=== PATIENT | female | born 1965 | race Caucasian/White ===

== ENCOUNTER 2016-11-22 13:18 | Emergency (ER) | payer BC, OTHER ==
--- NOTE | 2016-11-22 14:38 | ED ---
General Adult HPI - General Chief complaint: Chest Pain Stated complaint: Chest Pain Time Seen by Provider: 11/22/16 14:20 Source: patient, RN notes reviewed Mode of arrival: ambulatory Limitations: no limitations - History of Present Illness Initial comments: Chief complaint and history of present illness is a 51-year-old female who is here visiting her father is in the hospital. While there she developed chest pain. As retrosternal high epigastric region. Mildly nauseated mildly sweaty. The pain did not radiate anywhere. Approximately one hour for to subside. Patient denies ever having had any chest pain before - Related Data Home Medications Medication Instructions Recorded Confirmed Loratadine [Claritin] 10 mg PO DAILY 11/22/16 11/22/16 Omeprazole [PriLOSEC] 20 mg PO DAILY 11/22/16 11/22/16 Allergies Allergy/AdvReac Type Severity Reaction Status Date / Time No Known Allergies Allergy Verified 11/22/16 14:46 Review of Systems ROS Statement: Those systems with pertinent positive or pertinent negative responses have been documented in the HPI. Review of systems this time 1 mild discomfort to the retrosternal area high epigastric region. Not pain better or worse by twisting turning deep breathing or coughing. Palpating the area does not cause discomfort. Patient denying any visual acuity changes no headache no shortness of breath mild nausea earlier subsided no diarrhea today. No back pain. Pain. No extremity pain and no evidence or complaints of any neuro deficits. All systems were reviewed Past medical problems significant for GERD and seasonal ALLERGIES. Surgeries include and bunionectomy. Family history no cancer. Father does have heart disease. The patient's denying any ALLERGIES other than seasonal. The patient is reporting that she quit smoking 25 years ago. She drinks 3 or 4 glasses of wine nightly. ROS Other: All systems not noted in ROS Statement are negative. Past Medical History Past Medical History: GERD/Reflux Additional Past Medical History / Comment(s): allergies History of Any Multi-Drug Resistant Organisms: None Reported Past Surgical History: Section Additional Past Surgical History / Comment(s): bunionectomy Past Psychological History: No Psychological Hx Reported Smoking Status: Never smoker Past Alcohol Use History: Daily Past Drug Use History: None Reported General Exam - General Exam Comments Initial Comments: General: The patient is awake and alert, mild distress because of epigastric retrosternal discomfort last approximately half hour and subsiding. No radiation mild nausea this time mild sweats. Vital signs show temperature 98.5 pulse 64 story rate 20 pulse ox 98% room air blood pressure 147/76 mildly elevated systolic noted the patient is distressed. Eye: Pupils are equal, round and reactive to light, extra-ocular movements are intact ; there is normal conjunctiva bilaterally. No signs of icterus. Ears, nose, mouth and throat: There are moist mucous membranes and no oral lesions. Neck: The neck is supple, there is no tenderness , no anterior cervical lymphadenopathy, thyroid not enlarged. Cardiovascular: There is a regular rate and rhythm. No murmur, rub or gallop is appreciated. Respiratory: Lungs are clear to auscultation, respirations are non-labored, breath sounds are equal. No wheezes, stridor, rales, or rhonchi. Gastrointestinal: Soft, non-distended, no organomegaly, mild to minimal discomfort deep palpation of the epigastric region. There is no rebound or guarding present. Back: There is no tenderness to palpation in the midline. There is no obvious deformity. Musculoskeletal: Normal ROM, no tenderness, There is no pedal edema. There is no calf tenderness or swelling. Sensation intact. Pulses equal bilaterally 2+. Neurological: No complaint of dizziness, no neuro deficits complained of. No deficits noted. Skin: Patient denies rashes Limitations: no limitations Course Vital Signs 11/22/16 13:57 Temperature 98.5 F Pulse Rate 64 Respiratory 20 Rate Blood Pressure 147/76 O2 Sat by Pulse 98 Oximetry EKG Findings - EKG Comments: EKG Findings:: EKG was done and reviewed at 1333 showing normal sinus rhythm no acute ST elevation no ectopy no ischemic changes. Rate 62. Was 1:30 QRS [address] Suarez. No old EKGs available to compare to Medical Decision Making - Medical Decision Making Medical decision making the patient's white count 7.8 hemoglobin 13 hematocrit of 39 with an INR 1.1. Potassium is 4.2 with a BUN 11 creatinine 0.7 with a GFR greater than 60. Glucose 94. Amylase lipase normal limits. Chest x-ray was done and reviewed by radiologist and his impression is the heart size is normal. The pulmonary vasculature is normal. The lungs are clear. Impression no acute pulmonary process. As read by Dr. Sjgren At this time the patient is signing out AGAINST MEDICAL ADVICE nor to get back to her ailing father. I did discuss the risks of chest pain for her to come back to the emergency room immediately if she has any changes. She states she is currently pain free. Labs were returned are within normal limits. Troponin still pending. The patient was in emergency room within 40 minutes of the beginning of her chest discomfort troponin may not be elevated. She was going to be advised admitted for observation for the day because of the symptoms. With evaluation by cardiology and repeat cardiac enzymes. Patient states she understands risks and is signing out AGAINST MEDICAL ADVICE. - Lab Data Result diagrams: 11/22/16 14:38 11/22/16 14:38 Lab Results 11/22/16 11/22/16 11/22/16 Range/Units 14:38 14:38 14:38 WBC 7.8 (3.8-10.6) k/uL RBC 4.56 (3.80-5.40) m/uL Hgb 13.1 (11.4-16.0) gm/dL Hct 39.3 (34.0-46.0) % MCV 86.1 (80.0-100.0) fL MCH 28.7 (25.0-35.0) pg MCHC 33.4 (31.0-37.0) g/dL RDW 12.6 (11.5-15.5) % Plt Count 236 (150-450) k/uL Neutrophils % 74 % Lymphocytes % 18 % Monocytes % 5 % Eosinophils % 1 % Basophils % 0 % Neutrophils # 5.7 (1.3-7.7) k/uL Lymphocytes # 1.4 (1.0-4.8) k/uL Monocytes # 0.4 (0-1.0) k/uL Eosinophils # 0.1 (0-0.7) k/uL Basophils # 0.0 (0-0.2) k/uL PT 10.7 (9.0-12.0) sec INR 1.1 (<1.1) APTT 23.5 (22.0-30.0) sec Sodium 140 (137-145) mmol/L Potassium 4.2 (3.5-5.1) mmol/L Chloride 105 (98-107) mmol/L Carbon Dioxide 25 (22-30) mmol/L Anion Gap 10 mmol/L BUN 11 (7-17) mg/dL Creatinine 0.70 (0.52-1.04) mg/dL Est GFR (MDRD) Af Amer >60 (>60 ml/min/1.73 sqM) Est GFR (MDRD) Non-Af >60 (>60 ml/min/1.73 sqM) Glucose 94 (74-99) mg/dL Calcium 9.5 (8.4-10.2) mg/dL Magnesium 1.8 (1.6-2.3) mg/dL Total Bilirubin 0.8 (0.2-1.3) mg/dL AST 25 (14-36) U/L ALT 33 (9-52) U/L Alkaline Phosphatase 91 (38-126) U/L Total Protein 7.4 (6.3-8.2) g/dL Albumin 4.4 (3.5-5.0) g/dL Amylase 60 (30-110) U/L Lipase 90 (23-300) U/L Disposition Clinical Impression: Chest pain Disposition: Left Against Medical Advice Condition: Undetermined Instructions: Chest Pain (ED) Additional Instructions: Return to this emergency room or any emergency room for evaluation of your chest pain. If the pain returns immediately return to the ER, any ER. Follow- up family physician, tomorrow. Time of Disposition: 15:24
[2016-11-22 14:54] LABS: Basophils % (A) 0 %; CH 28.5; CHCM 33.2; Eosinophils # (A) 0.1 k/uL (0-0.7); Eosinophils % (A) 1 %; HCT 39.3 % (34.0-46.0); HDW 2.29; HGB 13.1 gm/dL (11.4-16.0); Luc # (Auto) 0.13; Luc % (Auto) 2; Lymphocytes # (A) 1.4 k/uL (1.0-4.8); Lymphocytes % (A) 18 %; MCH 28.7 pg (25.0-35.0); MCHC 33.4 g/dL (31.0-37.0); MCV 86.1 fL (80.0-100.0); Mean Platelet Volume 7.1; Monocytes # (A) 0.4 k/uL (0-1.0); Monocytes % (A) 5 %; Neutrophils # (A) 5.7 k/uL (1.3-7.7); Neutrophils % (A) 74 %; RBC 4.56 m/uL (3.80-5.40); RDW 12.6 % (11.5-15.5); WBC 7.8 k/uL (3.8-10.6); WBC (Perox) 7.91
[2016-11-22 14:57] LABS: INR 1.1 (<1.1); Prothrombin Time 10.7 sec (9.0-12.0)
[2016-11-22 14:58] LABS: Partial Thromboplastin Time 23.5 sec (22.0-30.0)
--- NOTE | 2016-11-22 15:03 | XR ---
EXAMINATION TYPE: XR chest 2V DATE OF EXAM: 11/22/2016 2:52 PM COMPARISON: NONE INDICATION: Chest pain TECHNIQUE: Single frontal view of the chest is obtained. FINDINGS: The heart size is normal. The pulmonary vasculature is normal. The lungs are clear. IMPRESSION: 1. No acute pulmonary process.
[2016-11-22 15:04] LABS: ALT 33 U/L (9-52); AST 25 U/L (14-36); Alkaline Phosphatase 91 U/L (38-126); Amylase 60 U/L (30-110); Anion Gap 10 mmol/L; Blood Urea Nitrogen 11 mg/dL (7-17); Calcium 9.5 mg/dL (8.4-10.2); Carbon Dioxide 25 mmol/L (22-30); Chloride 105 mmol/L (98-107); Glucose 94 mg/dL (74-99); Magnesium 1.8 mg/dL (1.6-2.3); Non-African American GFR(MDRD) >60 (>60 ml/min/1.73 sqM); Potassium 4.2 mmol/L (3.5-5.1); Sodium 140 mmol/L (137-145); Total Bilirubin 0.8 mg/dL (0.2-1.3); Total Protein 7.4 g/dL (6.3-8.2)
[2016-11-22 15:19] LABS: Creatine Kinase 109 U/L (30-135)
[2016-11-22 15:25] VITALS: BP 162/77; PULSE 70; RESP 18; TEMP 98.8
[2016-11-22 15:32] LABS: Creatine Kinase MB 1.2 ng/mL (0.0-2.4); Troponin I <0.012 ng/mL (0.000-0.034)
== END 2016-11-22 15:25 | disposition left against medical advice (07) ==
LOC: EC 13:18
DX: R07.9 Chest pain, unspecified (principal); K21.9 Gastro-esophageal reflux disease without esophagitis; Z53.21 Procedure and treatment not carried out due to patient leaving prior to being seen by health care provider; Z79.899 Other long term (current) drug therapy
CPT/HCPCS: 36415; 71020; 80053; 82150; 82550; 82553; 83690; 83735; 84484; 85025; 85610; 85730; 93005; 99285

== ENCOUNTER → 2019-01-08 | Outpatient (CLI) | payer OTHER ==
--- NOTE | 2019-01-09 13:38 | MM ---
Reason for exam: screening (asymptomatic). Last mammogram was performed 4 years and 4 months ago. History: Patient had first child at age 34. Right Mammotome Panel of the right breast, May 15, 2012. Took hormonal contraceptives for 19 years. Physical Findings: A clinical breast exam by your physician is recommended on an annual basis and results should be correlated with mammographic findings. MG Screening Mammo w CAD Bilateral CC and MLO view(s) were taken. Prior study comparison: September 23, 2014, left breast MG work up mamm w CAD LT. September 09, 2014, bilateral MG screening mammo w CAD. The breast tissue is extremely dense which could obscure a lesion on mammography. No significant changes when compared with prior studies. ASSESSMENT: Benign, BI-RAD 2 RECOMMENDATION: Routine screening mammogram of both breasts in 1 year.
== END | disposition home or self-care (01) ==
LOC: RADMAMWWP 16:53
PROVIDERS: ATTEND Obstetrics & Gynecology
DX: Z12.31 Encounter for screening mammogram for malignant neoplasm of breast (principal)
CPT/HCPCS: 77067

== ENCOUNTER 2021-08-27 19:28 | Emergency (ER) | payer OTHER ==
[2021-08-27 19:39] VITALS: BP 136/74; PULSE 67; RESP 18; TEMP 98.3
[2021-08-27] MEDS ORDERED: KETOROLAC 30 MG/ML 1 ML VIAL IVP STA (20:15)
[2021-08-27] MEDS ORDERED: ASPIRIN 81 MG PO STA (20:15)
--- NOTE | 2021-08-27 20:20 | ED ---
General Adult HPI - General Chief complaint: Chest Pain Stated complaint: palpitations Time Seen by Provider: 08/27/21 19:56 Source: patient, RN notes reviewed, old records reviewed Mode of arrival: ambulatory - History of Present Illness Initial comments: Patient is a 56-year-old female with a past medical history except for GERD presents emergency Department complaining of chest discomfort. She states this has been ongoing for a few months, however today occurred while awake and standing. She states that typically it occurs when she lays on her side and she describes it as a discomfort, sharp pain located substernally. It usually improves when she sits up or changes position. She states today while she was at work she had the pain while sitting up. States it lasted for approximately 3 hours and then resolved. He has any shortness of breath, abdominal pain, jessi sea, vomiting. His no associated symptoms with this pain. His no cardiac history. She presents today after discussing it with her nursing friend for further evaluation. She states she does not have chest pain currently. She has no other acute complaints. She was vaccinated for COVID-19. Denies any infectious symptoms. - Related Data Home Medications Medication Instructions Recorded Confirmed Loratadine [Claritin] 10 mg PO DAILY 11/22/16 08/27/21 Omeprazole Magnesium [PriLOSEC OTC] 20 mg PO DAILY 08/27/21 08/27/21 Allergies Allergy/AdvReac Type Severity Reaction Status Date / Time No Known Allergies Allergy Verified 08/27/21 21:14 Review of Systems ROS Statement: Those systems with pertinent positive or pertinent negative responses have been documented in the HPI. Review of Systems: CONST: Denies fever EYES: Denies blurry vision ENT: Denies nasal congestion C/V: Endorses resolved chest pain RESP: Denies shortness of breath GI: Denies abdominal pain : Denies dysuria SKIN: Denies rash. MSK: Denies joint pain. NEURO: Denies headache ROS Other: All systems not noted in ROS Statement are negative. Past Medical History Past Medical History: GERD/Reflux Additional Past Medical History / Comment(s): allergies History of Any Multi-Drug Resistant Organisms: None Reported Past Surgical History: Section Additional Past Surgical History / Comment(s): bunionectomy Past Psychological History: No Psychological Hx Reported Smoking Status: Never smoker Past Alcohol Use History: Daily Past Drug Use History: None Reported General Exam - General Exam Comments Initial Comments: General: Appears in no acute distress. HEAD: Normal with no signs of head trauma. EYES: PERRLA, EOMI, conjunctiva normal, no discharge. ENT: Hearing grossly intact, normal oropharynx. RESPIRATORY: Clear breath sounds bilaterally. No wheezes, rales, or rhonchi. C/V: Regular rate and rhythm. S1 and S2 auscultated, no edema, peripheral pulses 2+ and intact throughout. Chest pain is not present on palpation. ABD: Abd is soft, nontender, nondistended EXT: Normal range of motion, no obvious deformity SKIN: No rashes or lesions observed on exposed skin. NEURO: Alert and oriented 4. No focal deficits. Course Vital Signs 08/27/21 19:34 Temperature 98.3 F Pulse Rate 67 Respiratory 18 Rate Blood Pressure 136/74 O2 Sat by Pulse 99 Oximetry Medical Decision Making - Medical Decision Making Based on the patient's presentation and physical exam, I do believe she is likely expressing chest wall pain, however cannot rule out cardiac etiology at this time. Chest pain was over 3 hours ago and therefore I believe a single troponin should be sufficient in addition to basic labs, chest x-ray, EKG. She has no pain. Patient will be administered aspirin and IV Toradol. She was in agreement this plan. Patient's EKG showed no signs of acute ischemia.Chest x-ray showed no acute cardiopulmonary process. Laboratory studies are remarkable for a negative troponin. Creatinine is slightly elevated to 1.28. Pending labs are unremarkable. On reevaluation, patient's pain remains gone. Has not recurred while she is here in the department. I discussed the negative cardiac workup with her and I believe it is safe for her to be discharged home with follow-up with her PCP. She'll also receive cardiac referral. She was in agreement this plan. We discussed costochondritis as well as using Motrin at home for pain. Heart score is low at 1 point. I instructed the patient to follow up with their PCP in the next 3 days. I explained that the patient should return to the emergency department if they experience any worsening symptoms. Strict return precautions were discussed with the patient. The patient expressed understanding of these instructions. I answered all questions that the patient had. The patient was discharged home in good condition with their prescriptions and follow up information. - Lab Data Result diagrams: 08/27/21 20:50 08/27/21 20:50 Lab Results 08/27/21 08/27/21 08/27/21 Range/Units 20:50 20:50 20:50 WBC 6.7 (3.8-10.6) k/uL RBC 4.25 (3.80-5.40) m/uL Hgb 12.6 (11.4-16.0) gm/dL Hct 39.8 (34.0-46.0) % MCV 93.7 (80.0-100.0) fL MCH 29.7 (25.0-35.0) pg MCHC 31.7 (31.0-37.0) g/dL RDW 13.3 (11.5-15.5) % Plt Count 291 (150-450) k/uL MPV 7.6 Neutrophils % 40 % Lymphocytes % 49 % Monocytes % 6 % Eosinophils % 1 % Basophils % 1 % Neutrophils # 2.7 (1.3-7.7) k/uL Lymphocytes # 3.3 (1.0-4.8) k/uL Monocytes # 0.4 (0-1.0) k/uL Eosinophils # 0.1 (0-0.7) k/uL Basophils # 0.0 (0-0.2) k/uL Sodium 138 (137-145) mmol/L Potassium 4.5 (3.5-5.1) mmol/L Chloride 104 (98-107) mmol/L Carbon Dioxide 30 (22-30) mmol/L Anion Gap 4 mmol/L BUN 20 H (7-17) mg/dL Creatinine 1.28 H (0.52-1.04) mg/dL Est GFR (CKD-EPI)AfAm 55 (>60 ml/min/1.73 sqM) Est GFR (CKD-EPI)NonAf 48 (>60 ml/min/1.73 sqM) Glucose 94 (74-99) mg/dL Calcium 9.4 (8.4-10.2) mg/dL Magnesium 1.8 (1.6-2.3) mg/dL Total Bilirubin 0.4 (0.2-1.3) mg/dL AST 30 (14-36) U/L ALT 18 (4-34) U/L Alkaline Phosphatase 65 (38-126) U/L Troponin I <0.012 (0.000-0.034) ng/mL Total Protein 7.0 (6.3-8.2) g/dL Albumin 4.3 (3.5-5.0) g/dL - EKG Data -: EKG Interpreted by Me EKG Comments: 12-lead Electrocardiogram Interpretation Note EKG was reviewed and interpreted by myself. 12-lead ECG performed at 1943 is interpreted by me as revealing normal sinus rhythm at a rate of 63 beats per minute. [place] is normal. [place] interval is 132 ms, QRS duration is 82 ms, QTc is 409 ms.. There were no ST or T wave abnormalities to suggest myocardial ischemia or injury. R wave progression across the precordium was satisfactory. By my interpretation this EKG is non-diagnostic for acute ischemia. Disposition Clinical Impression: Chest wall pain, Costochondritis, Chest pain of unknown etiology Disposition: HOME SELF-CARE Condition: Good Instructions (If sedation given, give patient instructions): Chest Pain (ED), Costochondritis (ED) Is patient prescribed a controlled substance at d/c from ED?: No Referrals: Gustabo Sage MD [Primary Care Provider] - 1-2 days Ady Brown MD [STAFF PHYSICIAN] - 1-2 days
--- NOTE | 2021-08-27 20:49 | XR ---
EXAMINATION TYPE: XR chest 2V DATE OF EXAM: 08/27/2021 COMPARISON: 11/22/2016 HISTORY: Chest pain TECHNIQUE: 2 views FINDINGS: Heart and mediastinum are normal. Lungs are clear. Diaphragm is normal. Bony thorax appears normal. IMPRESSION: Normal chest. No change.
[2021-08-27 20:57] LABS: Basophils % (A) 1 %; Eosinophils # (A) 0.1 k/uL (0-0.7); Eosinophils % (A) 1 %; HCT 39.8 % (34.0-46.0); HGB 12.6 gm/dL (11.4-16.0); Lymphocytes # (A) 3.3 k/uL (1.0-4.8); Lymphocytes % (A) 49 %; MCH 29.7 pg (25.0-35.0); MCHC 31.7 g/dL (31.0-37.0); MCV 93.7 fL (80.0-100.0); Mean Platelet Volume 7.6; Monocytes # (A) 0.4 k/uL (0-1.0); Monocytes % (A) 6 %; Neutrophils # (A) 2.7 k/uL (1.3-7.7); Neutrophils % (A) 40 %; Platelet Count 291 k/uL (150-450); RBC 4.25 m/uL (3.80-5.40); RDW 13.3 % (11.5-15.5); WBC 6.7 k/uL (3.8-10.6)
[2021-08-27 21:07] LABS: Albumin 4.3 g/dL (3.5-5.0); Calcium 9.4 mg/dL (8.4-10.2); Magnesium 1.8 mg/dL (1.6-2.3); Potassium 4.5 mmol/L (3.5-5.1); Total Bilirubin 0.4 mg/dL (0.2-1.3)
[2021-08-27 22:00] LABS: Partial Thromboplastin Time 23.7 sec (22.0-30.0); Prothrombin Time 10.4 sec (9.0-12.0)
== END 2021-08-27 21:55 | disposition home or self-care (01) ==
LOC: EC 19:28
DX: M94.0 Chondrocostal junction syndrome [Tietze] (principal); R00.2 Palpitations; K21.9 Gastro-esophageal reflux disease without esophagitis; Z79.899 Other long term (current) drug therapy
CPT/HCPCS: 36415; 93005; 80053; 83735; 84484; 85025; 85610; 85730; 71046; 99285; 96374; J1885

== ENCOUNTER → 2022-06-28 | Outpatient (CLI) | payer OTHER ==
--- NOTE | 2022-06-29 09:09 | MM ---
Reason for Exam: Screening (asymptomatic). Last mammogram was performed 3 year(s) and 6 month(s) ago. Patient History: Menarche at age 19. First Full-Term at age 34. Late child-bearing (after 30). Postmenopausal. Hormonal Contraceptives for 19 years until age 38. 05/15/2012, Core Biopsy on the Right side. Risk Values: Ce 5 year model risk: 1.8%. NCI Lifetime model risk: 12.0%. Prior Study Comparison: 07/07/2013 Bilateral Screening Mammogram, [facility]. 09/09/2014 Bilateral Screening Mammogram, [facility]. 09/23/2014 Left Diagnostic Mammogram, [facility]. 01/08/2019 Bilateral Screening Mammogram, [facility]. Tissue Density: The breast tissue is heterogeneously dense. This may lower the sensitivity of mammography. Findings: Analyzed By CAD. There is no suspicious group of microcalcifications or new suspicious mass in either breast. Benign calcifications within both breasts. No significant change from prior exams. Overall Assessment: Benign, BI-RAD 2 Management: Screening Mammogram of both breasts in 1 year. A clinical breast exam by your physician is recommended on an annual basis and results should be correlated with mammographic findings. Electronically signed and approved by: Robert Noyola D.O.
== END | disposition home or self-care (01) ==
LOC: RADMAMWWP 08:14
PROVIDERS: ATTEND Family Medicine
DX: Z12.31 Encounter for screening mammogram for malignant neoplasm of breast (principal); Z78.0 Asymptomatic menopausal state; Z98.890 Other specified postprocedural states
CPT/HCPCS: 77067